=== PATIENT | male | born 1935 | race Caucasian/White ===

== ENCOUNTER 2020-08-01 07:57 | Observation (INO) ==
[2020-08-01 09:01] LABS: Basophils # 0.1 10*3/uL (0.0-0.2); Basophils % 1.1 % (0.0-0.8); Eosinophils # 0.3 10*3/uL (0.0-0.87); Eosinophils % 4.2 % (0.00-10.9); Hematocrit 40.3 VOL% (42.0-52.0); Hemoglobin 12.7 GM/DL (14.0-18.0); Immature Granulocytes % 0.4 %; Immature Granulocytes Absolute 0.03 #; Lymphocytes # 1.8 10*3/uL (1.4-4.0); Lymphocytes % 22.3 % (21.2-54.2); Mean Corpuscular HGB Conc 31.5 GM/DL (32-36); Mean Corpuscular Volume 90.2 FL (87-102); Mean Platelet Volume 9.7 FL (9.6-12.0); Monocytes % 9.4 % (1.7-12.7); Neutrophils % 62.6 % (38.7-73.9); Platelet Count 229 T/CUMM (130-400); Red Blood Count 4.47 MC/CUMM (3.8-5.5); Red Cell Distribution Width 13.9 % (9.3-17.3)
[2020-08-01 09:10] LABS: PT Patient Result 11.2 SECS (9.8-11.9); Partial Thromboplastin Time 29.7 SECS (23.9-33.8)
[2020-08-01 09:25] LABS: Albumin 3.7 G/DL (3.4-5.0); Bilirubin,Total 0.4 MG/DL (0.2-1.0); Calcium 8.8 MG/DL (8.5-10.1); Osmolality,Calculated 294.1 MOS/KG (273-304); Total Protein 7.5 G/DL (6.4-8.3)
[2020-08-01] MEDS ORDERED: GLUCAGON 1 MG VIAL IM PRN (11:46)
[2020-08-01] MEDS ORDERED: ONDANSETRON 4 MG/2 ML VIAL IV PRN (11:46)
[2020-08-01] MEDS ORDERED: DEXTROSE 50% 25 GM/50 ML VIAL IV PRN (11:46)
[2020-08-01] MEDS ORDERED: SODIUM CHLORIDE 0.9% 1,000 ML IV SCH (12:00)
[2020-08-01] MEDS ORDERED: FAMOTIDINE INJ 40 MG in SODIUM CHLORIDE 0.9% 100 ML IV SCH (12:30)
[2020-08-01 16:37] LABS: Hematocrit 35.5 VOL% (42.0-52.0); Hemoglobin 11.7 GM/DL (14.0-18.0)
[2020-08-01] MEDS: FAMOTIDINE 20 MG/2 ML VIAL IV SCH (18:27)
[2020-08-01 21:08] LABS: Hematocrit 32.6 VOL% (42.0-52.0); Hemoglobin 10.2 GM/DL (14.0-18.0)
[2020-08-02 03:51] LABS: Basophils # 0.1 10*3/uL (0.0-0.2); Eosinophils # 0.5 10*3/uL (0.0-0.87); Eosinophils % 6.5 % (0.00-10.9); Hematocrit 29.8 VOL% (42.0-52.0); Hemoglobin 9.3 GM/DL (14.0-18.0); Immature Granulocytes % 0.4 %; Immature Granulocytes Absolute 0.03 #; Lymphocytes # 2.3 10*3/uL (1.4-4.0); Lymphocytes % 32.3 % (21.2-54.2); Mean Corpuscular HGB Conc 31.2 GM/DL (32-36); Mean Corpuscular Volume 91.4 FL (87-102); Mean Platelet Volume 9.8 FL (9.6-12.0); Monocytes % 10.7 % (1.7-12.7); Neutrophils % 49.1 % (38.7-73.9); Platelet Count 184 T/CUMM (130-400); Red Blood Count 3.26 MC/CUMM (3.8-5.5); Red Cell Distribution Width 13.9 % (9.3-17.3); White Blood Count 7.2 T/CUMM (4-12)
[2020-08-02] MEDS: FAMOTIDINE 20 MG/2 ML VIAL IV SCH (06:05)
[2020-08-02 08:32] LABS: Hematocrit 32.1 VOL% (42.0-52.0); Hemoglobin 10.3 GM/DL (14.0-18.0)
[2020-08-02] MEDS: MULTIVITAMIN (CENTRUM) TABLET PO SCH (11:03)
[2020-08-02] MEDS: FINASTERIDE 5 MG TABLET PO SCH (11:06)
[2020-08-02 13:57] LABS: Hemoglobin 9.5 GM/DL (14.0-18.0)
[2020-08-02 19:49] LABS: Hematocrit 26.7 VOL% (42.0-52.0); Hemoglobin 8.8 GM/DL (14.0-18.0)
[2020-08-02] MEDS ORDERED: PANTOPRAZOLE 40 MG VIAL IV SCH (21:00)
[2020-08-03 01:39] LABS: Basophils # 0.1 10*3/uL (0.0-0.2); Basophils % 0.7 % (0.0-0.8); Eosinophils # 0.6 10*3/uL (0.0-0.87); Eosinophils % 8.3 % (0.00-10.9); Hematocrit 26.2 VOL% (42.0-52.0); Hemoglobin 8.8 GM/DL (14.0-18.0); Immature Granulocytes % 0.3 %; Immature Granulocytes Absolute 0.02 #; Lymphocytes # 2.2 10*3/uL (1.4-4.0); Lymphocytes % 31.7 % (21.2-54.2); Mean Corpuscular HGB Conc 33.6 GM/DL (32-36); Mean Corpuscular Volume 88.8 FL (87-102); Mean Platelet Volume 9.7 FL (9.6-12.0); Monocytes % 10.7 % (1.7-12.7); Neutrophils % 48.3 % (38.7-73.9); Platelet Count 154 T/CUMM (130-400); Red Blood Count 2.95 MC/CUMM (3.8-5.5); Red Cell Distribution Width 14.1 % (9.3-17.3); White Blood Count 6.9 T/CUMM (4-12)
[2020-08-03 01:51] LABS: Calcium 7.9 MG/DL (8.5-10.1); Osmolality,Calculated 288.3 MOS/KG (273-304)
[2020-08-03] MEDS ORDERED: PANTOPRAZOLE 40 MG VIAL IV SCH (06:30)
[2020-08-03 07:24] LABS: Hematocrit 29.6 VOL% (42.0-52.0); Hemoglobin 9.5 GM/DL (14.0-18.0)
[2020-08-03 08:01] VITALS: BP 163/63
[2020-08-03] MEDS: MULTIVITAMIN (CENTRUM) TABLET PO SCH (09:28)
[2020-08-03] MEDS: FINASTERIDE 5 MG TABLET PO SCH (09:28)
== END 2020-08-03 11:52 | disposition home or self-care (01) ==
LOC: N.ED 07:57 → N.EDINP 07:57 → SUATTDRO 11:46 → N.EDINP 14:55 → N.TELES 14:59
PROVIDERS: ADMIT Internal Medicine; ATTEND Phlebology

== ENCOUNTER 2020-08-16 17:32 | Inpatient (IN) ==
[2020-08-16] MEDS ORDERED: SODIUM CHLORIDE 0.9% 1,000 ML IV STA (18:26)
[2020-08-16 18:34] LABS: Basophils # 0.1 10*3/uL (0.0-0.2); Basophils % 0.3 % (0.0-0.8); Eosinophils % 0.1 % (0.00-10.9); Hematocrit 28.6 VOL% (42.0-52.0); Hemoglobin 9.2 GM/DL (14.0-18.0); Immature Granulocytes Absolute 0.19 #; Lymphocytes # 1.3 10*3/uL (1.4-4.0); Lymphocytes % 6.8 % (21.2-54.2); Mean Corpuscular HGB Conc 32.2 GM/DL (32-36); Mean Corpuscular Volume 87.2 FL (87-102); Mean Platelet Volume 9.6 FL (9.6-12.0); Monocytes % 6.6 % (1.7-12.7); Neutrophils % 85.2 % (38.7-73.9); Platelet Count 386 T/CUMM (130-400); Red Blood Count 3.28 MC/CUMM (3.8-5.5); White Blood Count 18.5 T/CUMM (4-12)
[2020-08-16 18:43] LABS: INR 1.2; PT Patient Result 12.5 SECS (9.8-11.9); Partial Thromboplastin Time 36.6 SECS (23.9-33.8)
[2020-08-16 18:50] LABS: Albumin 3.2 G/DL (3.4-5.0); Bilirubin,Total 0.6 MG/DL (0.2-1.0); Calcium 9.2 MG/DL (8.5-10.1); Osmolality,Calculated 293.7 MOS/KG (273-304); Potassium 3.5 MMOL/L (3.5-5.1); Total Protein 8.3 G/DL (6.4-8.3)
[2020-08-16] MEDS ORDERED: ACETAMINOPHEN 500 MG TABLET PO STA (19:02)
[2020-08-16 19:32] LABS: Bilirubin,Urine Negative (Negative); Blood, Urine Negative (Negative); Glucose,Urine (UA) Negative (Negative); Hyaline Casts,Urine 3 /LPF (0-3); Ketones,Urine Negative (Negative); Nitrite,Urine Negative (Negative); Protein,Urine 30 MG/DL; RBC,Urine <1 /HPF (0-4); Squamous Epithelial Cell,Urine Occasional /HPF (0-10); Urine Appearance CLEAR (Clear); Urine Color Yellow (Yellow); Urine Specific Gravity 1.012 (1.001-1.035); Urine Urobilinogen < 2.0 EU/DL (0.2-1.0); WBC,Urine 2 /HPF (0-6)
[2020-08-16] MEDS ORDERED: LORazepam 2 MG/1 ML VIAL IV STA (20:04)
[2020-08-16] MEDS ORDERED: AZITHROMYCIN INJ 500 MG in SODIUM CHLORIDE 0.9% 250 ML IV STA (20:11)
[2020-08-16] MEDS ORDERED: cefTRIAXone 1,000 MG in SODIUM CHLORIDE 0.9% 100 ML IV STA (20:11)
[2020-08-16] MEDS ORDERED: hydrALAZINE 20 MG/1 ML VIAL IV PRN (20:53)
[2020-08-16] MEDS ORDERED: MORPHINE 4 MG/1 ML VIAL IV PRN (20:53)
[2020-08-16] MEDS ORDERED: DEXTROSE 50% 25 GM/50 ML VIAL IV PRN (20:53)
[2020-08-16] MEDS ORDERED: diphenhydrAMINE CAP 25 MG CAPSULE PO PRN (20:53)
[2020-08-16] MEDS ORDERED: ONDANSETRON 4 MG/2 ML VIAL IV PRN (20:53)
[2020-08-16] MEDS ORDERED: GLUCAGON 1 MG VIAL IM PRN (20:53)
[2020-08-16] MEDS ORDERED: NICOTINE 21 MG/24 HR PATCH TRANSDERM PRN (20:53)
[2020-08-16] MEDS ORDERED: guaiFENesin/DM ER 600-30 MG TABLET PO PRN (20:53)
[2020-08-16] MEDS ORDERED: ACETAMINOPHEN 325 MG TABLET PO PRN (20:53)
[2020-08-16] MEDS ORDERED: SODIUM CHLORIDE 0.9% 1,000 ML IV SCH (21:00)
[2020-08-16 21:12] LABS: Ferritin 145.5 ng/ml (26-388)
[2020-08-16] MEDS: hydrALAZINE 25 MG TABLET PO SCH (22:06)
[2020-08-16] MEDS: ASCORBIC ACID 500 MG TABLET PO SCH (22:06)
[2020-08-16] MEDS: RIVAROXABAN 2.5 MG TABLET PO SCH (22:06)
[2020-08-16] MEDS: FAMOTIDINE 20 MG TABLET PO SCH (22:06)
[2020-08-17 05:46] LABS: Basophils % 0.2 % (0.0-0.8); Eosinophils % 0.1 % (0.00-10.9); Hematocrit 24.4 VOL% (42.0-52.0); Immature Granulocytes % 0.8 %; Immature Granulocytes Absolute 0.11 #; Lymphocytes % 7.2 % (21.2-54.2); Mean Corpuscular HGB Conc 31.6 GM/DL (32-36); Mean Corpuscular Volume 88.4 FL (87-102); Mean Platelet Volume 9.4 FL (9.6-12.0); Monocytes % 5.7 % (1.7-12.7); Platelet Count 310 T/CUMM (130-400); Red Blood Count 2.76 MC/CUMM (3.8-5.5); Red Cell Distribution Width 14.2 % (9.3-17.3); White Blood Count 14.1 T/CUMM (4-12)
[2020-08-17 05:47] LABS: Hemoglobin 7.7 GM/DL (14.0-18.0)
[2020-08-17 06:15] LABS: Hypochromasia 1+; Microcytosis 1+; Ovalocytes Slight; Platelet Estimate Adequate
[2020-08-17] MEDS: CHOLECALCIFEROL 1,000 UNIT TABLET PO SCH (09:00)
[2020-08-17] MEDS: AZITHROMYCIN 250 MG TABLET PO SCH (09:01)
[2020-08-17] MEDS: RIVAROXABAN 2.5 MG TABLET PO SCH (09:01)
[2020-08-17] MEDS: ZINC GLUCONATE 50 MG TABLET PO SCH (09:02)
[2020-08-17] MEDS: FUROSEMIDE 40 MG TABLET PO SCH (09:02)
[2020-08-17] MEDS: hydrALAZINE 25 MG TABLET PO SCH ×2 (09:02→22:01)
[2020-08-17] MEDS: FAMOTIDINE 20 MG TABLET PO SCH ×2 (09:02→22:01)
[2020-08-17] MEDS: FINASTERIDE 5 MG TABLET PO SCH (09:02)
[2020-08-17] MEDS: ASCORBIC ACID 500 MG TABLET PO SCH ×2 (09:02→22:01)
[2020-08-17] MEDS: CETIRIZINE 10 MG TABLET PO SCH (09:03)
[2020-08-17] MEDS: METOPROLOL TARTRATE 25 MG TABLET PO SCH (09:03)
[2020-08-17] MEDS: amLODIPine 5 MG TABLET PO SCH (09:03)
[2020-08-17] MEDS: MULTIVITAMIN (CENTRUM) TABLET PO SCH (09:03)
[2020-08-17] MEDS: DEXAMETHASONE 4 MG/1 ML VIAL IV SCH (09:03)
[2020-08-17] MEDS: cefTRIAXone 1,000 MG in SYRINGE 1 EACH IV SCH (22:00)
[2020-08-17] MEDS: MELATONIN 3 MG TABLET PO PRN (22:01)
[2020-08-18 05:55] LABS: Basophils % 0.1 % (0.0-0.8); Hematocrit 23.2 VOL% (42.0-52.0); Hemoglobin 7.5 GM/DL (14.0-18.0); Immature Granulocytes % 1.1 %; Immature Granulocytes Absolute 0.17 #; Lymphocytes # 0.6 10*3/uL (1.4-4.0); Lymphocytes % 3.8 % (21.2-54.2); Mean Corpuscular HGB Conc 32.3 GM/DL (32-36); Mean Corpuscular Volume 87.5 FL (87-102); Mean Platelet Volume 9.7 FL (9.6-12.0); Monocytes % 4.4 % (1.7-12.7); Neutrophils % 90.6 % (38.7-73.9); Platelet Count 331 T/CUMM (130-400); Red Blood Count 2.65 MC/CUMM (3.8-5.5); Red Cell Distribution Width 14.5 % (9.3-17.3); White Blood Count 15.1 T/CUMM (4-12)
[2020-08-18 06:19] LABS: Albumin 2.5 G/DL (3.4-5.0); Bilirubin,Total 0.5 MG/DL (0.2-1.0); Calcium 8.8 MG/DL (8.5-10.1); Ferritin 196.4 ng/ml (26-388); Osmolality,Calculated 294.5 MOS/KG (273-304); Potassium 3.4 MMOL/L (3.5-5.1); Total Protein 6.9 G/DL (6.4-8.3)
[2020-08-18 06:22] LABS: Band Neutrophils 1 % (0-10); Burr Cells Slight; Hypochromasia 2+; Lymphocytes 3 % (20-55); Microcytosis 1+; Nucleated Red Blood Cells 1 (0-5); Ovalocytes Slight; Platelet Estimate Adequate; Segmented Neutrophils 92 % (50-85); Total Cells Counted 100
[2020-08-18] MEDS: FUROSEMIDE 40 MG TABLET PO SCH ×2 (09:12→13:22)
[2020-08-18] MEDS: AZITHROMYCIN 250 MG TABLET PO SCH (09:12)
[2020-08-18] MEDS: ASCORBIC ACID 500 MG TABLET PO SCH ×2 (09:12→21:15)
[2020-08-18] MEDS: METOPROLOL TARTRATE 25 MG TABLET PO SCH (09:12)
[2020-08-18] MEDS: hydrALAZINE 25 MG TABLET PO SCH ×2 (09:12→21:15)
[2020-08-18] MEDS: FAMOTIDINE 20 MG TABLET PO SCH ×2 (09:12→21:15)
[2020-08-18] MEDS: MULTIVITAMIN (CENTRUM) TABLET PO SCH (09:13)
[2020-08-18] MEDS: ZINC GLUCONATE 50 MG TABLET PO SCH (09:13)
[2020-08-18] MEDS: CETIRIZINE 10 MG TABLET PO SCH (09:13)
[2020-08-18] MEDS: amLODIPine 5 MG TABLET PO SCH (09:13)
[2020-08-18] MEDS: FINASTERIDE 5 MG TABLET PO SCH (09:13)
[2020-08-18] MEDS: DEXAMETHASONE 4 MG/1 ML VIAL IV SCH (09:13)
[2020-08-18] MEDS: CHOLECALCIFEROL 1,000 UNIT TABLET PO SCH (09:13)
[2020-08-18] MEDS ORDERED: POTASSIUM CHLORIDE 20 MEQ TABLET PO ONE (10:01)
[2020-08-18] MEDS: MELATONIN 3 MG TABLET PO PRN (21:15)
[2020-08-18] MEDS: cefTRIAXone 1,000 MG in SYRINGE 1 EACH IV SCH (21:15)
[2020-08-19 05:40] LABS: Basophils % 0.1 % (0.0-0.8); Hematocrit 23.2 VOL% (42.0-52.0); Hemoglobin 7.2 GM/DL (14.0-18.0); Immature Granulocytes % 2.9 %; Lymphocytes # 0.6 10*3/uL (1.4-4.0); Lymphocytes % 4.5 % (21.2-54.2); Mean Corpuscular Volume 89.6 FL (87-102); Mean Platelet Volume 9.6 FL (9.6-12.0); Monocytes % 3.7 % (1.7-12.7); NRBC # 0.02 10*3/uL; Neutrophils % 88.8 % (38.7-73.9); Platelet Count 398 T/CUMM (130-400); Red Blood Count 2.59 MC/CUMM (3.8-5.5); Red Cell Distribution Width 14.7 % (9.3-17.3); White Blood Count 13.6 T/CUMM (4-12)
[2020-08-19 06:06] LABS: % Iron Saturation 9.5 % (18-50); Albumin 2.5 G/DL (3.4-5.0); Bilirubin,Total 0.9 MG/DL (0.2-1.0); Ferritin 203.9 ng/ml (26-388); Osmolality,Calculated 294.5 MOS/KG (273-304); Potassium 3.9 MMOL/L (3.5-5.1); Total Protein 6.9 G/DL (6.4-8.3)
[2020-08-19 06:07] LABS: Band Neutrophils 1 % (0-10); Lymphocytes 1 % (20-55); Platelet Estimate Normal; Segmented Neutrophils 96 % (50-85)
[2020-08-19 06:08] LABS: Hypochromasia 1+; Total Cells Counted 100
[2020-08-19] MEDS: AZITHROMYCIN 250 MG TABLET PO SCH (08:55)
[2020-08-19] MEDS: amLODIPine 5 MG TABLET PO SCH (08:55)
[2020-08-19] MEDS: ZINC GLUCONATE 50 MG TABLET PO SCH (08:55)
[2020-08-19] MEDS: FAMOTIDINE 20 MG TABLET PO SCH (08:55)
[2020-08-19] MEDS: METOPROLOL TARTRATE 25 MG TABLET PO SCH (08:55)
[2020-08-19] MEDS: DEXAMETHASONE 4 MG/1 ML VIAL IV SCH (08:55)
[2020-08-19] MEDS: MULTIVITAMIN (CENTRUM) TABLET PO SCH (08:55)
[2020-08-19] MEDS: CETIRIZINE 10 MG TABLET PO SCH (08:55)
[2020-08-19] MEDS: ASCORBIC ACID 500 MG TABLET PO SCH (08:55)
[2020-08-19] MEDS: hydrALAZINE 25 MG TABLET PO SCH (08:55)
[2020-08-19] MEDS: CHOLECALCIFEROL 1,000 UNIT TABLET PO SCH (08:55)
[2020-08-19] MEDS: FINASTERIDE 5 MG TABLET PO SCH (08:55)
[2020-08-19 11:59] VITALS: BP 166/70
== END 2020-08-19 11:50 | disposition home health service (06) | DRG 177 ==
LOC: N.ED 17:32 → SUATTDRO 20:53 → N.EDINP 20:53 → N.2E 21:43
PROVIDERS: ADMIT Internal Medicine; ATTEND Internal Medicine

== ENCOUNTER 2022-07-22 00:54 | Inpatient (IN) ==
[2022-07-22] MEDS ORDERED: ONDANSETRON 4 MG/2 ML VIAL IV STA (02:07)
[2022-07-22] MEDS ORDERED: LORazepam 1 MG TABLET PO STA (02:07)
[2022-07-22] MEDS ORDERED: amLODIPine 5 MG TABLET PO STA (02:32)
[2022-07-22 02:46] LABS: Basophils # 0.1 10*3/uL (0.0-0.2); Basophils % 0.8 % (0.0-0.8); Eosinophils # 0.2 10*3/uL (0.0-0.87); Eosinophils % 2.6 % (0.00-10.9); Hemoglobin 11.7 GM/DL (14.0-18.0); Immature Granulocytes % 0.4 %; Immature Granulocytes Absolute 0.03 #; Lymphocytes # 2.2 10*3/uL (1.4-4.0); Lymphocytes % 28.6 % (21.2-54.2); Mean Corpuscular HGB Conc 30.8 GM/DL (32-36); Mean Corpuscular Volume 76.9 FL (87-102); Mean Platelet Volume 10.3 FL (9.6-12.0); Monocytes # 0.8 10*3/uL (0.11-0.8); Monocytes % 10.9 % (1.7-12.7); Neutrophils % 56.7 % (38.7-73.9); Platelet Count 312 T/CUMM (130-400); Red Blood Count 4.94 MC/CUMM (3.8-5.5); Red Cell Distribution Width 17.4 % (9.3-17.3); White Blood Count 7.6 T/CUMM (4-12)
[2022-07-22 02:53] LABS: Albumin 4.2 G/DL (3.4-5.0); Bilirubin,Total 0.5 MG/DL (0.20-1.00); Calcium 9.4 MG/DL (8.5-10.1); Osmolality,Calculated 297.3 MOS/KG (273-304); Total Protein 8.1 G/DL (6.4-8.2)
[2022-07-22] MEDS ORDERED: FUROSEMIDE 40 MG/4 ML VIAL IV STA (03:13)
[2022-07-22 03:16] LABS: PT Patient Result 11.3 SECS (10.1-12.1)
[2022-07-22] MEDS ORDERED: hydrALAZINE 20 MG/1 ML VIAL ONE (03:27)
[2022-07-22] MEDS ORDERED: hydrALAZINE 20 MG/1 ML VIAL IV STA (03:46)
[2022-07-22] MEDS ORDERED: MAGNESIUM SULF RIDER 2 GM/50 ML PREMIX IV PRN (04:26)
[2022-07-22] MEDS ORDERED: hydrALAZINE 20 MG/1 ML VIAL IV PRN (04:26)
[2022-07-22] MEDS ORDERED: ONDANSETRON 4 MG/2 ML VIAL IV PRN (04:26)
[2022-07-22] MEDS ORDERED: ACETAMINOPHEN 325 MG TABLET PO PRN (04:26)
[2022-07-22] MEDS ORDERED: MAGNESIUM SULF RIDER 4 GM/100 ML PREMIX IV PRN (04:26)
[2022-07-22] MEDS ORDERED: SIMETHICONE CHEW 125 MG TABLET PO PRN (04:26)
[2022-07-22] MEDS ORDERED: POTASSIUM CHLORIDE 20 MEQ TABLET PO STA (04:31)
[2022-07-22 05:44] LABS: Hyaline Casts,Urine 4 /LPF (0-3); Mucus,Urine Occasional /LPF (Occasional); RBC,Urine 1 /HPF (0-4); Squamous Epithelial Cell,Urine Occasional /HPF (0-10)
[2022-07-22 05:46] LABS: Bilirubin,Urine Negative (Negative); Blood, Urine Negative (Negative); Glucose,Urine (UA) Negative (Negative); Ketones,Urine Negative (Negative); Nitrite,Urine Negative (Negative); Protein,Urine 30 mg/dL (Negative); Urine Appearance Clear (Clear); Urine Color Yellow (Yellow); Urine pH 5.5 (4.5-8.0)
[2022-07-22 05:47] LABS: Urine Urobilinogen 0.2 eU/dL (<2.0)
[2022-07-22 07:22] LABS: Barbiturates Screen,Urine Negative (Negative); Benzodiazepines Screen,Urine Negative (Negative); Cannabinoid Screen,Urine Negative (Negative); Opiate Screen,Urine Negative (Negative); Phencyclidine Screen,Urine Negative (Negative)
[2022-07-22] MEDS: ALBUTEROL 2.5 MG/3 ML NEB RESP TX SCH ×3 (08:15→19:10)
[2022-07-22] MEDS ORDERED: hydroCHLOROthiazide 25 MG TABLET PO SCH (09:00)
[2022-07-22] MEDS ORDERED: METOPROLOL TARTRATE 25 MG TABLET PO SCH (09:00)
[2022-07-22] MEDS ORDERED: FUROSEMIDE 80 MG TABLET PO SCH (09:00)
[2022-07-22] MEDS ORDERED: hydrALAZINE 25 MG TABLET PO SCH (09:00)
[2022-07-22] MEDS ORDERED: amLODIPine 5 MG TABLET PO SCH (09:00)
[2022-07-22] MEDS: PANTOPRAZOLE 40 MG TABLET PO SCH (09:29)
[2022-07-22] MEDS: MULTIVITAMIN (CENTRUM) TABLET PO SCH (09:29)
[2022-07-22] MEDS: FINASTERIDE 5 MG TABLET PO SCH (09:29)
[2022-07-22] MEDS: FUROSEMIDE 40 MG/4 ML VIAL IV SCH (09:30)
[2022-07-22] MEDS: POTASSIUM CHLORIDE 20 MEQ TABLET PO SCH (11:33)
[2022-07-22] MEDS: DOCUSATE SODIUM 100 MG CAPSULE PO SCH ×2 (11:33→21:09)
[2022-07-22] MEDS: RIVAROXABAN 10 MG TABLET PO SCH (18:23)
[2022-07-22] MEDS: TAMSULOSIN 0.4 MG CAPSULE PO SCH (21:09)
[2022-07-22] MEDS ORDERED: MELATONIN 3 MG TABLET PO PRN (22:37)
[2022-07-22 23:55] LABS: Calcium 9.4 MG/DL (8.5-10.1); Osmolality,Calculated 293.5 MOS/KG (273-304); Potassium 3.9 MMOL/L (3.5-5.1)
[2022-07-23] MEDS: ALBUTEROL 2.5 MG/3 ML NEB RESP TX SCH ×4 (00:06→20:12)
[2022-07-23 05:39] LABS: Basophils # 0.1 10*3/uL (0.0-0.2); Basophils % 0.9 % (0.0-0.8); Eosinophils # 0.1 10*3/uL (0.0-0.87); Eosinophils % 1.5 % (0.00-10.9); Hematocrit 36.2 VOL% (42.0-52.0); Hemoglobin 10.9 GM/DL (14.0-18.0); Immature Granulocytes % 0.5 %; Immature Granulocytes Absolute 0.04 #; Lymphocytes # 1.3 10*3/uL (1.4-4.0); Lymphocytes % 14.9 % (21.2-54.2); Mean Corpuscular HGB Conc 30.1 GM/DL (32-36); Mean Corpuscular Volume 79.7 FL (87-102); Mean Platelet Volume 10.1 FL (9.6-12.0); Monocytes # 0.9 10*3/uL (0.11-0.8); Monocytes % 10.8 % (1.7-12.7); Neutrophils % 71.4 % (38.7-73.9); Platelet Count 255 T/CUMM (130-400); Red Blood Count 4.54 MC/CUMM (3.8-5.5); Red Cell Distribution Width 17.9 % (9.3-17.3); White Blood Count 8.6 T/CUMM (4-12)
[2022-07-23 05:51] LABS: Folate > 24.00 NG/ML (5.38-24.0); Vitamin B12 549 PG/ML (211-911)
[2022-07-23 05:55] LABS: Calcium 8.7 MG/DL (8.5-10.1); Osmolality,Calculated 293.5 MOS/KG (273-304); Potassium 3.2 MMOL/L (3.5-5.1); Thyroid Stimulating Hormone 7.99 uIU/ml (0.358-3.74)
[2022-07-23 05:58] LABS: Basophils % 0.5 % (0.0-0.8); Eosinophils # 0.1 10*3/uL (0.0-0.87); Eosinophils % 1.6 % (0.00-10.9); Hematocrit 37.2 VOL% (42.0-52.0); Hemoglobin 11.1 GM/DL (14.0-18.0); Immature Granulocytes % 0.4 %; Immature Granulocytes Absolute 0.03 #; Lymphocytes # 1.2 10*3/uL (1.4-4.0); Lymphocytes % 14.6 % (21.2-54.2); Mean Corpuscular HGB Conc 29.8 GM/DL (32-36); Mean Corpuscular Volume 80.5 FL (87-102); Mean Platelet Volume 10.2 FL (9.6-12.0); Monocytes % 11.2 % (1.7-12.7); Neutrophils % 71.7 % (38.7-73.9); Platelet Count 247 T/CUMM (130-400); Red Blood Count 4.62 MC/CUMM (3.8-5.5); White Blood Count 8.5 T/CUMM (4-12)
[2022-07-23 06:03] LABS: % Iron Saturation 8.4 % (18-50); Ferritin 18.6 ng/mL (26-388)
[2022-07-23 07:02] LABS: Sedimentation Rate-Westergren 15 MM/HR (0-20)
[2022-07-23 08:38] LABS: Hemoglobin A1 (Alkaline) 97.6 % (96.5-98.5); Hemoglobin A2 (Alkaline) 2.4 % (1.5-3.5)
[2022-07-23] MEDS: PANTOPRAZOLE 40 MG TABLET PO SCH (10:02)
[2022-07-23] MEDS: DOCUSATE SODIUM 100 MG CAPSULE PO SCH ×2 (10:03→20:59)
[2022-07-23] MEDS: MULTIVITAMIN (CENTRUM) TABLET PO SCH (10:03)
[2022-07-23] MEDS: FUROSEMIDE 40 MG/4 ML VIAL IV SCH (10:03)
[2022-07-23] MEDS: POTASSIUM CHLORIDE 20 MEQ TABLET PO SCH (10:03)
[2022-07-23] MEDS: FINASTERIDE 5 MG TABLET PO SCH (10:03)
[2022-07-23] MEDS: amLODIPine 5 MG TABLET PO SCH (10:03)
[2022-07-23] MEDS: hydrALAZINE 25 MG TABLET PO SCH ×2 (10:04→20:59)
[2022-07-23] MEDS ORDERED: methylPREDNISolone 4 MG TABLET PO SCH (12:30)
[2022-07-23] MEDS: RIVAROXABAN 10 MG TABLET PO SCH (17:10)
[2022-07-23] MEDS: methylPREDNISolone 4 MG TABLET PO SCH ×2 (17:11→21:00)
[2022-07-23] MEDS ORDERED: ZALEPLON 5 MG CAPSULE PO PRN (21:00)
[2022-07-23] MEDS: TAMSULOSIN 0.4 MG CAPSULE PO SCH (21:00)
[2022-07-23] MEDS ORDERED: traZODone 50 MG TABLET PO SCH (21:00)
[2022-07-23] MEDS: BUDESONIDE/FORMOTEROL 160-4.5 INHALER 6 GM INH SCH (23:15)
[2022-07-24] MEDS: ALBUTEROL 2.5 MG/3 ML NEB RESP TX SCH ×4 (00:57→20:43)
[2022-07-24 06:53] LABS: Calcium 9.2 MG/DL (8.5-10.1); Osmolality,Calculated 295.8 MOS/KG (273-304); Potassium 4.2 MMOL/L (3.5-5.1)
[2022-07-24] MEDS: methylPREDNISolone 4 MG TABLET PO SCH ×4 (08:48→21:11)
[2022-07-24] MEDS: PANTOPRAZOLE 40 MG TABLET PO SCH (08:49)
[2022-07-24] MEDS: POTASSIUM CHLORIDE 20 MEQ TABLET PO SCH (08:49)
[2022-07-24] MEDS: DOCUSATE SODIUM 100 MG CAPSULE PO SCH ×2 (08:49→21:11)
[2022-07-24] MEDS: hydrALAZINE 25 MG TABLET PO SCH ×2 (08:49→21:10)
[2022-07-24] MEDS: FINASTERIDE 5 MG TABLET PO SCH (08:49)
[2022-07-24] MEDS: amLODIPine 5 MG TABLET PO SCH (08:49)
[2022-07-24] MEDS: BUDESONIDE/FORMOTEROL 160-4.5 INHALER 6 GM INH SCH ×2 (08:50→21:12)
[2022-07-24] MEDS: MULTIVITAMIN (CENTRUM) TABLET PO SCH (08:50)
[2022-07-24] MEDS ORDERED: NEBIVOLOL 5 MG TABLET PO SCH (09:00)
[2022-07-24] MEDS: RIVAROXABAN 10 MG TABLET PO SCH (17:08)
[2022-07-24] MEDS: TAMSULOSIN 0.4 MG CAPSULE PO SCH (21:10)
[2022-07-24] MEDS: ZALEPLON 5 MG CAPSULE PO PRN (23:01)
[2022-07-25] MEDS: ALBUTEROL 2.5 MG/3 ML NEB RESP TX SCH ×4 (01:18→19:17)
[2022-07-25 06:17] LABS: Basophils % 0.1 % (0.0-0.8); Hematocrit 33.7 VOL% (42.0-52.0); Immature Granulocytes % 0.6 %; Immature Granulocytes Absolute 0.04 #; Lymphocytes # 0.3 10*3/uL (1.4-4.0); Lymphocytes % 4.7 % (21.2-54.2); Mean Corpuscular HGB Conc 29.7 GM/DL (32-36); Mean Corpuscular Volume 79.1 FL (87-102); Mean Platelet Volume 10.7 FL (9.6-12.0); Monocytes # 0.3 10*3/uL (0.11-0.8); Monocytes % 4.6 % (1.7-12.7); Platelet Count 273 T/CUMM (130-400); Red Blood Count 4.26 MC/CUMM (3.8-5.5); Red Cell Distribution Width 18.8 % (9.3-17.3)
[2022-07-25 06:36] LABS: % Iron Saturation 8.6 % (18-50); Calcium 9.4 MG/DL (8.5-10.1); Ferritin 23.6 ng/mL (26-388); Osmolality,Calculated 300.7 MOS/KG (273-304); Potassium 4.9 MMOL/L (3.5-5.1)
[2022-07-25 08:40] LABS: Anisocytosis Slight; Band Neutrophils 3 % (0-10); Lymphocytes 6 % (20-55); Ovalocytes Few; Platelet Estimate Normal; Total Cells Counted 100
[2022-07-25] MEDS: BUDESONIDE/FORMOTEROL 160-4.5 INHALER 6 GM INH SCH ×2 (09:59→21:28)
[2022-07-25] MEDS: hydrALAZINE 25 MG TABLET PO SCH ×2 (10:00→21:27)
[2022-07-25] MEDS: DOCUSATE SODIUM 100 MG CAPSULE PO SCH ×2 (10:00→21:28)
[2022-07-25] MEDS: methylPREDNISolone 4 MG TABLET PO SCH ×4 (10:00→21:28)
[2022-07-25] MEDS: NEBIVOLOL 10 MG TABLET PO SCH (10:00)
[2022-07-25] MEDS: amLODIPine 5 MG TABLET PO SCH (10:00)
[2022-07-25] MEDS: FINASTERIDE 5 MG TABLET PO SCH (10:01)
[2022-07-25] MEDS: MULTIVITAMIN (CENTRUM) TABLET PO SCH (10:01)
[2022-07-25] MEDS: PANTOPRAZOLE 40 MG TABLET PO SCH (10:01)
[2022-07-25] MEDS: POTASSIUM CHLORIDE 20 MEQ TABLET PO SCH (10:32)
[2022-07-25] MEDS: RIVAROXABAN 10 MG TABLET PO SCH (17:15)
[2022-07-25] MEDS: cloNIDine 0.1 MG TABLET PO SCH (21:28)
[2022-07-25] MEDS: TAMSULOSIN 0.4 MG CAPSULE PO SCH (21:28)
[2022-07-25] MEDS: ZALEPLON 5 MG CAPSULE PO PRN (23:27)
[2022-07-26] MEDS: ALBUTEROL 2.5 MG/3 ML NEB RESP TX SCH ×4 (00:16→20:19)
[2022-07-26 06:07] LABS: Basophils % 0.2 % (0.0-0.8); Hematocrit 32.7 VOL% (42.0-52.0); Immature Granulocytes % 0.7 %; Immature Granulocytes Absolute 0.04 #; Lymphocytes # 0.7 10*3/uL (1.4-4.0); Mean Corpuscular HGB Conc 30.6 GM/DL (32-36); Mean Corpuscular Volume 79.4 FL (87-102); Mean Platelet Volume 10.5 FL (9.6-12.0); Monocytes # 0.3 10*3/uL (0.11-0.8); Monocytes % 5.6 % (1.7-12.7); Neutrophils % 81.5 % (38.7-73.9); Platelet Count 265 T/CUMM (130-400); Red Blood Count 4.12 MC/CUMM (3.8-5.5); Red Cell Distribution Width 19.3 % (9.3-17.3); White Blood Count 6.1 T/CUMM (4-12)
[2022-07-26 06:31] LABS: Osmolality,Calculated 303.5 MOS/KG (273-304); Potassium 4.5 MMOL/L (3.5-5.1)
[2022-07-26] MEDS: amLODIPine 5 MG TABLET PO SCH (08:32)
[2022-07-26] MEDS: NEBIVOLOL 10 MG TABLET PO SCH (08:32)
[2022-07-26] MEDS: methylPREDNISolone 4 MG TABLET PO SCH ×3 (08:32→21:06)
[2022-07-26] MEDS: SILDENAFIL 20 MG TABLET PO SCH ×3 (08:33→21:06)
[2022-07-26] MEDS: PANTOPRAZOLE 40 MG TABLET PO SCH (08:33)
[2022-07-26] MEDS: FINASTERIDE 5 MG TABLET PO SCH (08:33)
[2022-07-26] MEDS: POTASSIUM CHLORIDE 20 MEQ TABLET PO SCH (08:33)
[2022-07-26] MEDS: BUDESONIDE/FORMOTEROL 160-4.5 INHALER 6 GM INH SCH ×2 (08:33→21:06)
[2022-07-26] MEDS: MULTIVITAMIN (CENTRUM) TABLET PO SCH (08:33)
[2022-07-26] MEDS: cloNIDine 0.1 MG TABLET PO SCH ×2 (08:33→21:06)
[2022-07-26] MEDS: DOCUSATE SODIUM 100 MG CAPSULE PO SCH ×2 (08:33→21:06)
[2022-07-26] MEDS: FERRIC GLUCONATE COMPLEX 125 MG in SODIUM CHLORIDE 0.9% 100 ML IV SCH (09:00)
[2022-07-26] MEDS: LORazepam 0.5 MG TABLET PO SCH ×2 (11:14→21:06)
[2022-07-26] MEDS: RIVAROXABAN 10 MG TABLET PO SCH (17:04)
[2022-07-26] MEDS: TAMSULOSIN 0.4 MG CAPSULE PO SCH (21:06)
[2022-07-26] MEDS: ZALEPLON 5 MG CAPSULE PO PRN (23:00)
[2022-07-27] MEDS: ALBUTEROL 2.5 MG/3 ML NEB RESP TX SCH ×3 (02:37→13:30)
[2022-07-27 05:29] LABS: Basophils % 0.2 % (0.0-0.8); Eosinophils % 0.2 % (0.00-10.9); Hemoglobin 10.5 GM/DL (14.0-18.0); Immature Granulocytes % 0.6 %; Immature Granulocytes Absolute 0.04 #; Lymphocytes % 16.6 % (21.2-54.2); Mean Corpuscular Volume 80.5 FL (87-102); Mean Platelet Volume 10.9 FL (9.6-12.0); Monocytes # 0.4 10*3/uL (0.11-0.8); Monocytes % 6.8 % (1.7-12.7); Neutrophils % 75.6 % (38.7-73.9); Platelet Count 312 T/CUMM (130-400); Red Blood Count 4.35 MC/CUMM (3.8-5.5); Red Cell Distribution Width 19.3 % (9.3-17.3); White Blood Count 6.2 T/CUMM (4-12)
[2022-07-27 06:01] LABS: Osmolality,Calculated 299.8 MOS/KG (273-304)
[2022-07-27] MEDS: DOCUSATE SODIUM 100 MG CAPSULE PO SCH (09:24)
[2022-07-27] MEDS: cloNIDine 0.1 MG TABLET PO SCH (09:24)
[2022-07-27] MEDS: amLODIPine 5 MG TABLET PO SCH (09:24)
[2022-07-27] MEDS: MULTIVITAMIN (CENTRUM) TABLET PO SCH (09:24)
[2022-07-27] MEDS: PANTOPRAZOLE 40 MG TABLET PO SCH (09:25)
[2022-07-27] MEDS: NEBIVOLOL 10 MG TABLET PO SCH (09:25)
[2022-07-27] MEDS: BUDESONIDE/FORMOTEROL 160-4.5 INHALER 6 GM INH SCH (09:25)
[2022-07-27] MEDS: FINASTERIDE 5 MG TABLET PO SCH (09:25)
[2022-07-27] MEDS: LORazepam 0.5 MG TABLET PO SCH (09:25)
[2022-07-27] MEDS: FERRIC GLUCONATE COMPLEX 125 MG in SODIUM CHLORIDE 0.9% 100 ML IV SCH (09:25)
[2022-07-27] MEDS: POTASSIUM CHLORIDE 20 MEQ TABLET PO SCH ×2 (09:25→09:48)
[2022-07-27] MEDS: SILDENAFIL 20 MG TABLET PO SCH ×2 (09:25→16:33)
[2022-07-27] MEDS ORDERED: MAGNESIUM HYDROXIDE SUSP 30 ML UDCUP PO ONE (09:45)
[2022-07-27] MEDS: methylPREDNISolone 4 MG TABLET PO SCH (09:50)
[2022-07-27 15:35] VITALS: BP 148/59
[2022-07-27] MEDS: RIVAROXABAN 10 MG TABLET PO SCH (16:33)
[2022-07-28] MEDS ORDERED: FUROSEMIDE 80 MG TABLET PO SCH (09:00)
== END 2022-07-27 17:19 | disposition home or self-care (01) | DRG 314 ==
LOC: N.EDINP 00:54 → N.ED 00:54 → SUATTDRO 04:26 → N.3E 05:06 → SUATTDRO 07-24 16:47
PROVIDERS: ADMIT Internal Medicine; ATTEND Hospitalist

== ENCOUNTER 2022-09-01 11:27 | Inpatient (IN) ==
[2022-09-01] MEDS ORDERED: ONDANSETRON 4 MG/2 ML VIAL IV STA (11:58)
[2022-09-01] MEDS ORDERED: SODIUM CHLORIDE 0.9% 1,000 ML IV STA (11:58)
[2022-09-01 13:38] LABS: Basophils % 0.6 % (0.0-0.8); Eosinophils % 0.5 % (0.00-10.9); Hematocrit 31.9 VOL% (42.0-52.0); Hemoglobin 9.4 GM/DL (14.0-18.0); Immature Granulocytes % 1.9 %; Immature Granulocytes Absolute 0.12 #; Lymphocytes # 1.1 10*3/uL (1.4-4.0); Lymphocytes % 17.7 % (21.2-54.2); Mean Corpuscular HGB Conc 29.5 GM/DL (32-36); Mean Corpuscular Volume 83.1 FL (87-102); Mean Platelet Volume 10.3 FL (9.6-12.0); Monocytes # 0.3 10*3/uL (0.11-0.8); Monocytes % 4.4 % (1.7-12.7); Neutrophils % 74.9 % (38.7-73.9); Platelet Count 213 T/CUMM (130-400); Red Blood Count 3.84 MC/CUMM (3.8-5.5); Red Cell Distribution Width 21.1 % (9.3-17.3); White Blood Count 6.32 T/CUMM (4-12)
[2022-09-01 13:56] LABS: Albumin 3.3 G/DL (3.4-5.0); Bilirubin,Total 0.6 MG/DL (0.20-1.00); Calcium 8.9 MG/DL (8.5-10.1); Potassium 4.1 MMOL/L (3.5-5.1); Total Protein 6.8 G/DL (6.4-8.2)
[2022-09-01] MEDS ORDERED: ACETAMINOPHEN 325 MG TABLET PO PRN (15:13)
[2022-09-01] MEDS: ONDANSETRON 4 MG/2 ML VIAL IV PRN (16:52)
[2022-09-01] MEDS: RIVAROXABAN 10 MG TABLET PO SCH (17:44)
[2022-09-01] MEDS ORDERED: PROMETHAZINE 25 MG/1 ML VIAL IM ONE (18:05)
[2022-09-01] MEDS: SODIUM BICARB INJ 50 MEQ in DEXTROSE 5% NACL 0.45% 1,000 ML IV SCH (19:15)
[2022-09-01] MEDS: TAMSULOSIN 0.4 MG CAPSULE PO SCH (21:06)
[2022-09-01] MEDS: LACTULOSE 20 GM/30 ML UDCUP PO SCH (21:06)
[2022-09-01] MEDS: DOCUSATE SODIUM 100 MG CAPSULE PO SCH (21:06)
[2022-09-01] MEDS: SILDENAFIL 20 MG TABLET PO SCH (21:06)
[2022-09-02 05:55] LABS: Basophils % 0.5 % (0.0-0.8); Eosinophils % 0.5 % (0.00-10.9); Hematocrit 29.7 VOL% (42.0-52.0); Hemoglobin 9.2 GM/DL (14.0-18.0); Immature Granulocytes % 3.3 %; Immature Granulocytes Absolute 0.21 #; Lymphocytes # 1.2 10*3/uL (1.4-4.0); Lymphocytes % 18.4 % (21.2-54.2); Mean Corpuscular Volume 80.3 FL (87-102); Mean Platelet Volume 10.7 FL (9.6-12.0); Monocytes # 0.5 10*3/uL (0.11-0.8); Monocytes % 7.7 % (1.7-12.7); Neutrophils % 69.6 % (38.7-73.9); Platelet Count 208 T/CUMM (130-400); Red Cell Distribution Width 21.2 % (9.3-17.3); White Blood Count 6.35 T/CUMM (4-12)
[2022-09-02 06:01] LABS: Albumin 3.2 G/DL (3.4-5.0); Bilirubin,Total 0.6 MG/DL (0.20-1.00); Calcium 8.6 MG/DL (8.5-10.1); Potassium 3.8 MMOL/L (3.5-5.1); Total Protein 6.7 G/DL (6.4-8.2)
[2022-09-02 06:23] LABS: Free T4 (Free Thyroxine) 0.71 NG/DL (0.76-1.46); Thyroid Stimulating Hormone 5.97 uIU/ml (0.358-3.74)
[2022-09-02] MEDS: LACTULOSE 20 GM/30 ML UDCUP PO SCH ×3 (09:40→21:16)
[2022-09-02] MEDS: PANTOPRAZOLE 40 MG TABLET PO SCH (09:40)
[2022-09-02] MEDS: SILDENAFIL 20 MG TABLET PO SCH ×3 (09:40→21:18)
[2022-09-02] MEDS: FINASTERIDE 5 MG TABLET PO SCH (09:40)
[2022-09-02] MEDS: DOCUSATE SODIUM 100 MG CAPSULE PO SCH ×2 (09:40→21:18)
[2022-09-02] MEDS: amLODIPine 10 MG TABLET PO SCH (09:40)
[2022-09-02] MEDS: FERRIC GLUCONATE COMPLEX 125 MG in SODIUM CHLORIDE 0.9% 100 ML IV SCH (09:41)
[2022-09-02] MEDS: SODIUM BICARB INJ 50 MEQ in DEXTROSE 5% NACL 0.45% 1,000 ML IV SCH (09:44)
[2022-09-02] MEDS: ONDANSETRON 4 MG/2 ML VIAL IV PRN (09:54)
[2022-09-02] MEDS ORDERED: LIDOCAINE/PRILOCAINE CREAM 5 GM TUBE TOP SCH (15:00)
[2022-09-02 15:46] LABS: Hepatitis B Core IgM Quant 0.06 Index; Hepatitis B Surface Ag Quant < 0.10 Index; Hepatitis B Surface Ag Result Non-Reactive (NonReactive); Hepatitis C Virus Ab Quant 0.02 Index; Hepatitis C Virus Ab Result Non-Reactive (NonReactive)
[2022-09-02] MEDS: RIVAROXABAN 10 MG TABLET PO SCH (18:55)
[2022-09-02] MEDS: ZALEPLON 5 MG CAPSULE PO PRN (21:18)
[2022-09-02] MEDS: TAMSULOSIN 0.4 MG CAPSULE PO SCH (21:18)
[2022-09-02] MEDS: ZINC OXIDE PASTE 113 GM TUBE TOP SCH (21:19)
[2022-09-03] MEDS: LEVOTHYROXINE 25 MCG TABLET PO SCH (05:45)
[2022-09-03] MEDS: SODIUM BICARB INJ 50 MEQ in DEXTROSE 5% NACL 0.45% 1,000 ML IV SCH (05:59)
[2022-09-03 06:18] LABS: Basophils % 0.8 % (0.0-0.8); Eosinophils # 0.2 10*3/uL (0.0-0.87); Eosinophils % 2.9 % (0.00-10.9); Hematocrit 28.5 VOL% (42.0-52.0); Hemoglobin 8.8 GM/DL (14.0-18.0); Immature Granulocytes % 3.4 %; Immature Granulocytes Absolute 0.18 #; Lymphocytes # 1.4 10*3/uL (1.4-4.0); Lymphocytes % 26.6 % (21.2-54.2); Mean Corpuscular HGB Conc 30.9 GM/DL (32-36); Mean Corpuscular Volume 79.8 FL (87-102); Mean Platelet Volume 10.3 FL (9.6-12.0); Monocytes # 0.6 10*3/uL (0.11-0.8); Monocytes % 10.9 % (1.7-12.7); Neutrophils % 55.4 % (38.7-73.9); Platelet Count 175 T/CUMM (130-400); Red Blood Count 3.57 MC/CUMM (3.8-5.5); Red Cell Distribution Width 21.2 % (9.3-17.3); White Blood Count 5.23 T/CUMM (4-12)
[2022-09-03 06:36] LABS: Bilirubin,Total 0.8 MG/DL (0.20-1.00); Calcium 8.4 MG/DL (8.5-10.1); Osmolality,Calculated 304.5 MOS/KG (273-304); Potassium 3.2 MMOL/L (3.5-5.1); Total Protein 6.3 G/DL (6.4-8.2)
[2022-09-03] MEDS ORDERED: LIDOCAINE/PRILOCAINE CREAM 5 GM TUBE TOP SCH (10:30)
[2022-09-03] MEDS: PANTOPRAZOLE 40 MG TABLET PO SCH (10:38)
[2022-09-03] MEDS: SILDENAFIL 20 MG TABLET PO SCH ×3 (10:38→20:53)
[2022-09-03] MEDS: DOCUSATE SODIUM 100 MG CAPSULE PO SCH ×2 (10:38→20:53)
[2022-09-03] MEDS: amLODIPine 10 MG TABLET PO SCH (10:38)
[2022-09-03] MEDS: FINASTERIDE 5 MG TABLET PO SCH (10:38)
[2022-09-03] MEDS: LACTULOSE 20 GM/30 ML UDCUP PO SCH ×2 (10:38→20:53)
[2022-09-03] MEDS: FERRIC GLUCONATE COMPLEX 125 MG in SODIUM CHLORIDE 0.9% 100 ML IV SCH (10:39)
[2022-09-03] MEDS ORDERED: CARBOXYMETHYLCELLULOSE 1% OPH SOLN BOTH EYES PRN (13:57)
[2022-09-03] MEDS: ZINC OXIDE PASTE 113 GM TUBE TOP SCH ×2 (15:45→20:53)
[2022-09-03] MEDS: RIVAROXABAN 10 MG TABLET PO SCH (18:31)
[2022-09-03] MEDS: TAMSULOSIN 0.4 MG CAPSULE PO SCH (20:53)
[2022-09-04 05:08] LABS: Osmolality,Calculated 281.2 MOS/KG (273-304); Potassium 3.2 MMOL/L (3.5-5.1)
[2022-09-04] MEDS: LEVOTHYROXINE 25 MCG TABLET PO SCH (06:07)
[2022-09-04] MEDS: LACTULOSE 20 GM/30 ML UDCUP PO SCH ×2 (08:32→21:52)
[2022-09-04] MEDS: FINASTERIDE 5 MG TABLET PO SCH (08:32)
[2022-09-04] MEDS: amLODIPine 10 MG TABLET PO SCH (08:32)
[2022-09-04] MEDS: DOCUSATE SODIUM 100 MG CAPSULE PO SCH ×2 (08:32→21:52)
[2022-09-04] MEDS: SILDENAFIL 20 MG TABLET PO SCH ×3 (08:32→21:52)
[2022-09-04] MEDS: ZINC OXIDE PASTE 113 GM TUBE TOP SCH ×2 (08:33→22:54)
[2022-09-04] MEDS: PANTOPRAZOLE 40 MG TABLET PO SCH (08:33)
[2022-09-04] MEDS: FERRIC GLUCONATE COMPLEX 125 MG in SODIUM CHLORIDE 0.9% 100 ML IV SCH (10:12)
[2022-09-04] MEDS: POTASSIUM CHLORIDE 20 MEQ TABLET PO SCH (10:13)
[2022-09-04] MEDS: ONDANSETRON 4 MG/2 ML VIAL IV PRN (11:38)
[2022-09-04] MEDS: RIVAROXABAN 10 MG TABLET PO SCH (17:11)
[2022-09-04] MEDS: TAMSULOSIN 0.4 MG CAPSULE PO SCH (21:52)
[2022-09-04] MEDS: ZALEPLON 5 MG CAPSULE PO PRN (21:52)
[2022-09-05] MEDS: LEVOTHYROXINE 25 MCG TABLET PO SCH (05:33)
[2022-09-05 06:24] LABS: Calcium 8.7 MG/DL (8.5-10.1); Osmolality,Calculated 278.8 MOS/KG (273-304); Potassium 3.2 MMOL/L (3.5-5.1)
[2022-09-05] MEDS ORDERED: POTASSIUM CHLORIDE 20 MEQ TABLET PO SCH (09:00)
[2022-09-05] MEDS: ZINC OXIDE PASTE 113 GM TUBE TOP SCH ×2 (10:30→21:33)
[2022-09-05] MEDS: DOCUSATE SODIUM 100 MG CAPSULE PO SCH (10:30)
[2022-09-05] MEDS: SILDENAFIL 20 MG TABLET PO SCH ×3 (10:30→21:33)
[2022-09-05] MEDS: PANTOPRAZOLE 40 MG TABLET PO SCH (10:30)
[2022-09-05] MEDS: LACTULOSE 20 GM/30 ML UDCUP PO SCH (10:30)
[2022-09-05] MEDS: amLODIPine 10 MG TABLET PO SCH (10:30)
[2022-09-05] MEDS: POTASSIUM CHLORIDE 20 MEQ TABLET PO SCH (10:30)
[2022-09-05] MEDS: FINASTERIDE 5 MG TABLET PO SCH (10:30)
[2022-09-05] MEDS: FERRIC GLUCONATE COMPLEX 125 MG in SODIUM CHLORIDE 0.9% 100 ML IV SCH (10:56)
[2022-09-05] MEDS ORDERED: EPOETIN ALFA-EPBX 4,000 UNIT/ML VIAL IV PRN (12:04)
[2022-09-05] MEDS ORDERED: LOPERAMIDE 2 MG CAPSULE PO ONE (14:20)
[2022-09-05] MEDS: RIVAROXABAN 10 MG TABLET PO SCH (17:05)
[2022-09-05] MEDS: TAMSULOSIN 0.4 MG CAPSULE PO SCH (21:33)
[2022-09-05] MEDS: ZALEPLON 5 MG CAPSULE PO PRN (21:37)
[2022-09-06] MEDS: LEVOTHYROXINE 25 MCG TABLET PO SCH ×2 (04:10)
[2022-09-06 07:02] LABS: Calcium 8.7 MG/DL (8.5-10.1); Osmolality,Calculated 282.8 MOS/KG (273-304); Potassium 3.4 MMOL/L (3.5-5.1)
[2022-09-06] MEDS: PANTOPRAZOLE 40 MG TABLET PO SCH (09:18)
[2022-09-06] MEDS: FERRIC GLUCONATE COMPLEX 125 MG in SODIUM CHLORIDE 0.9% 100 ML IV SCH (09:18)
[2022-09-06] MEDS: amLODIPine 10 MG TABLET PO SCH (09:18)
[2022-09-06] MEDS: POTASSIUM CHLORIDE 20 MEQ TABLET PO SCH (09:18)
[2022-09-06] MEDS: FINASTERIDE 5 MG TABLET PO SCH (09:18)
[2022-09-06] MEDS: SILDENAFIL 20 MG TABLET PO SCH ×3 (09:18→21:43)
[2022-09-06] MEDS: ZINC OXIDE PASTE 113 GM TUBE TOP SCH ×2 (09:30→21:43)
[2022-09-06] MEDS: RIVAROXABAN 10 MG TABLET PO SCH (16:51)
[2022-09-06] MEDS: TAMSULOSIN 0.4 MG CAPSULE PO SCH (21:43)
[2022-09-06] MEDS: ZALEPLON 5 MG CAPSULE PO PRN (21:43)
[2022-09-07] MEDS: LEVOTHYROXINE 25 MCG TABLET PO SCH (06:04)
[2022-09-07] MEDS: POTASSIUM CHLORIDE 20 MEQ TABLET PO SCH (08:53)
[2022-09-07] MEDS: FINASTERIDE 5 MG TABLET PO SCH (08:53)
[2022-09-07] MEDS: PANTOPRAZOLE 40 MG TABLET PO SCH (08:53)
[2022-09-07] MEDS: ZINC OXIDE PASTE 113 GM TUBE TOP SCH ×2 (08:53→20:22)
[2022-09-07] MEDS: amLODIPine 10 MG TABLET PO SCH (08:58)
[2022-09-07] MEDS: SILDENAFIL 20 MG TABLET PO SCH ×3 (09:00→20:21)
[2022-09-07 09:16] LABS: Calcium 8.9 MG/DL (8.5-10.1); Osmolality,Calculated 287.7 MOS/KG (273-304); Potassium 3.7 MMOL/L (3.5-5.1)
[2022-09-07] MEDS: RIVAROXABAN 10 MG TABLET PO SCH (16:42)
[2022-09-07] MEDS: TAMSULOSIN 0.4 MG CAPSULE PO SCH (20:21)
[2022-09-07] MEDS: ZALEPLON 5 MG CAPSULE PO PRN (21:21)
[2022-09-08] MEDS: LEVOTHYROXINE 25 MCG TABLET PO SCH (05:35)
[2022-09-08 06:18] LABS: Calcium 8.8 MG/DL (8.5-10.1); Osmolality,Calculated 285.5 MOS/KG (273-304); Potassium 3.7 MMOL/L (3.5-5.1)
[2022-09-08 08:30] VITALS: BP 152/52
[2022-09-08] MEDS: ZINC OXIDE PASTE 113 GM TUBE TOP SCH (09:27)
[2022-09-08] MEDS: SILDENAFIL 20 MG TABLET PO SCH (10:48)
[2022-09-08] MEDS: FINASTERIDE 5 MG TABLET PO SCH (10:48)
[2022-09-08] MEDS: POTASSIUM CHLORIDE 20 MEQ TABLET PO SCH (10:48)
[2022-09-08] MEDS: amLODIPine 10 MG TABLET PO SCH (10:48)
[2022-09-08] MEDS: PANTOPRAZOLE 40 MG TABLET PO SCH (10:49)
== END 2022-09-08 12:00 | disposition home or self-care (01) | DRG 683 ==
LOC: EDUNIT# → EDBD → N.ED 11:27 → N.2E 16:07 → SUATTDRO 16:07 → N.2E 16:54
PROVIDERS: ADMIT Internal Medicine; ATTEND Internal Medicine Nephrology